=== PATIENT | male | born 1995 | race African-American/Black ===

== ENCOUNTER 2022-03-08 10:22 | Emergency (ER) | payer BC, MEDICAID ==
[~2022-03-08] VITALS: Ht 172.7 cm; Wt 77.0 kg
[2022-03-08 10:56] VITALS: BP 133/84
[2022-03-08] MEDS ORDERED: KETOROLAC 15MG/ML VIAL IM ONE (11:15)
== END 2022-03-08 12:20 | disposition home or self-care (01) ==
LOC: ER 10:39
DX: M25.571 Pain in right ankle and joints of right foot (principal)
CPT/HCPCS: 73610; 73630; 99284; J1885